=== PATIENT | female | born 1995 | race Caucasian/White ===

== ENCOUNTER 2016-08-20 06:15 | Emergency (ER) | payer SELFPAY ==
[2016-08-20 07:22] LABS: HCG,QUALITATIVE URINE NEGATIVE
[2016-08-20 07:23] LABS: PH,URINE 6.5 (5.0-8.0); URINE BILIRUBIN NEGATIVE (NEGATIVE); URINE BLOOD TRACE (NEGATIVE); URINE GLUCOSE (UA) NEGATIVE (NEGATIVE); URINE LEUKOCYTE ESTERASE NEGATIVE (NEGATIVE); URINE NITRITE NEGATIVE (NEGATIVE); URINE PROTEIN TRACE (NEGATIVE); URINE UROBILINOGEN NORMAL (0-1 mg/dl)
[2016-08-20 07:26] LABS: URINE APPEARANCE CLEAR; URINE COLOR YELLOW
[2016-08-20 07:36] LABS: URINE BACTERIA 0; URINE EPITHELIAL CELLS FEW /hpf; URINE MUCUS 1+; URINE RBC RARE /hpf; URINE WBC RARE /hpf
[2016-08-20] MEDS ORDERED: PENICILLIN G BENZATHINE 1.2 MMU/2 ML SYRINGE IM ONE (07:55)
== END 2016-08-20 08:19 | disposition home or self-care (01) ==
LOC: ED 06:15
DX: J02.0 Streptococcal pharyngitis (principal)
CPT/HCPCS: 81025; 87880; 81001; 87804; 99283 ×2; 96372; J0561